=== PATIENT | female | born 1955 | race Caucasian/White ===

== ENCOUNTER → 2017-01-17 | Outpatient (CLI) | payer BC ==
--- NOTE | 2017-01-17 09:40 | BD ---
EXAMINATION TYPE: MG DEXA axial skeleton. DATE OF EXAM: 01/17/2017 COMPARISON: NONE CLINICAL HISTORY: Height: 65.5 IN Weight: 175 LBS FRAX RISK QUESTIONS: Alcohol (3 or more units per day): NO Family History (Parent hip fracture): NO Glucocorticoids (More than 3mos): NO (Ex: prednisone, prednisolone, methylprednisolone, dexamethasone, and hydrocortisone). History of Fracture in Adulthood: YES RT ANKLE AGE 57 Secondary Osteoporosis: 1. Type 1 Diabetes: NO 2. Hyperthyroidism: NO 3. Menopause before 45: YES TOTAL HYST. AGE 39 4. Malnutrition: NO 5. Chronic liver disease: NO Rheumatoid Arthritis: NO Current Tobacco Use: NO RISK FACTORS HISTORY OF: Surgery to Hip(left): YES When: AGE 55 Other Fractures since Age 49: YES RT ANKLE When: AGE 57 Active: YES Postmenopausal woman: AGE 39 Take estrogen and/or progesterone medications: NOT NOW How long: AGE 39 - 53 MEDICATIONS: Thyroid Medications: YES Which medication: Synthroid How Lon YRS Additional Medications: SYNTHROID,DICOLOFENAC, SIMVASTATIN, MYRBETRIQ EXAM MEASUREMENTS: Bone mineral densitometry was performed using the theBench System. Bone mineral density as measured about the Lumbar spine is: ----- L1-L4(G/cm2): 1.159 T Score Values are as follows: ----- L2: -0.2 ----- L3: 0.4 ----- L4: -0.5 ----- L1-L4: -0.2 Bone mineral density BASELINE Bone mineral density about the R hip (g/cm2): 0.974 T Score values are as follows: -----R Neck: -0.5 -----R Total: 0.1 Bone mineral density BASELINE IMPRESSION: No evidence of osteopenia or osteoporosis NOTE: T-SCORE=SD OF THE YOUNG ADULT MEAN.
--- NOTE | 2017-01-18 07:22 | MM ---
Reason for exam: screening (asymptomatic). Last mammogram was performed 1 year ago. History: Patient is postmenopausal and is nulliparous. Family history of breast cancer in mother at age 77, breast cancer in paternal aunt, breast cancer in maternal aunt, and breast cancer in maternal grandmother. Benign right US cyst aspiration ea add of the right breast, April 04, 2007. Benign right US cyst aspiration of the right breast, April 04, 2007. Benign left US cyst aspiration of the left breast, February 16, 2006. Cyst aspiration of the left breast, 2003. Cyst aspiration of the right breast, 1999. Took estrogen for 15 years beginning at age 39. Physical Findings: A clinical breast exam by your physician is recommended on an annual basis and results should be correlated with mammographic findings. MG 3D Screening Mammo W/Cad Bilateral CC and MLO view(s) were taken. Prior study comparison: January 14, 2016, bilateral MG screening mammo w CAD. January 09, 2015, bilateral MG screening mammo w CAD. Previous mammotome biopsy in the right breast x 2. ASSESSMENT: Benign, BI-RAD 2 RECOMMENDATION: Routine screening mammogram of both breasts in 1 year.
== END | disposition home or self-care (01) ==
LOC: RADMAMWWP 08:19
PROVIDERS: ATTEND Family Medicine
DX: Z12.31 Encounter for screening mammogram for malignant neoplasm of breast (principal); Z78.0 Asymptomatic menopausal state
CPT/HCPCS: 77080; 77063; G0202

== ENCOUNTER → 2018-02-14 | Outpatient (CLI) | payer BC ==
--- NOTE | 2018-02-15 10:29 | MM ---
Reason for exam: screening (asymptomatic). Last mammogram was performed 1 year and 1 month ago. History: Patient is postmenopausal and is nulliparous. Family history of breast cancer in mother at age 77, breast cancer in paternal aunt, breast cancer in maternal aunt, and breast cancer in maternal grandmother. Benign right US cyst aspiration ea add of the right breast, April 04, 2007. Benign right US cyst aspiration of the right breast, April 04, 2007. Benign left US cyst aspiration of the left breast, February 16, 2006. Cyst aspiration of the left breast, 2003. Cyst aspiration of the right breast, 1999. Took estrogen for 15 years beginning at age 39. Physical Findings: A clinical breast exam by your physician is recommended on an annual basis and results should be correlated with mammographic findings. MG 3D Screening Mammo W/Cad Bilateral CC and MLO view(s) were taken. Prior study comparison: January 17, 2017, bilateral MG 3d screening mammo w/cad. January 14, 2016, bilateral MG screening mammo w CAD. The breast tissue is heterogeneously dense. This may lower the sensitivity of mammography. Finding: There are typically benign round calcifications in both breasts. Previous mammotome biopsy in the right breast x 2. There is no discrete abnormality. ASSESSMENT: Benign, BI-RAD 2 RECOMMENDATION: Routine screening mammogram of both breasts in 1 year.
== END | disposition home or self-care (01) ==
LOC: RADMAMWWP 09:28
PROVIDERS: ATTEND Family Medicine
DX: Z12.31 Encounter for screening mammogram for malignant neoplasm of breast (principal)
CPT/HCPCS: 77063; 77067

== ENCOUNTER → 2018-03-29 | Outpatient (CLI) | payer BC ==
--- NOTE | 2018-03-29 16:32 | MR ---
EXAMINATION TYPE: MR lumbar spine wo con DATE OF EXAM: 03/29/2018 COMPARISON: 04/14/2011 HISTORY: Low back pain / M48.062 Spinal stenosis CONTRAST: 0 mL intravenous Gadavist. TECHNIQUE: Multiplanar, multisequence images of the lumbar spine were acquired. FINDINGS: L1 L5-S1: No significant disc bulge or disc herniation. No spinal canal stenosis. No foraminal stenosi s. Mild facet hypertrophy is present. There appears be a mild grade 1 spondylolisthesis of L5 anteri or on S1.. L4-L5: Broad based disc bulge is present with mild anterior thecal sac flattening. No AP spinal tamir l stenosis is present. Facet hypertrophy has posterior lateral thecal sac contact. Mild foraminal babar rowing is present. L3-L4: Broad-based disc bulge is present with anterior thecal sac flattening. Facet hypertrophy is pr esent with posterior lateral thecal sac contact. No spinal canal stenosis is present. Mild left and m oderate right foraminal narrowing is present . L2-L3: L disc bulging is anterior thecal sac contact. No spinal canal stenosis is present. Neural for amen are patent. L1-L2: No significant disc bulge or disc herniation. No spinal canal stenosis. No foraminal stenosi s. . T12-L1: No significant disc bulge or disc herniation. No spinal canal stenosis. No foraminal stenos is. IMPRESSION: 1. Mild grade 1 spondylolisthesis of L5 anterior on S1. 2. Broad-based disc bulging L4-5, L3-4. This is progressive from the 2010 comparison. No stenosis is present
== END | disposition home or self-care (01) ==
LOC: RADMRIMAIN 08:42
PROVIDERS: ATTEND Orthopaedic Surgery
DX: M51.26 Other intervertebral disc displacement, lumbar region (principal); M43.17 Spondylolisthesis, lumbosacral region
CPT/HCPCS: 72148

== ENCOUNTER 2019-02-14 14:38 | Day surgery (SDC) | payer BC, MEDICARE ==
[2019-02-12 10:18] VITALS: BMI 25.9
[~2019-02-14 14:38] MED LIST: LACTATED RINGERS 1,000 ML IV SCH; LIDOCAINE 1% 20 ML VIAL (10MG/ML) FOR IV START INTRADERMA PRN; ONDANSETRON 4 MG/2 ML VIAL IVP ONE; ceFAZolin IN SWFI 2 GM/20 ML SYRINGE IVP ONE
[2019-02-14 15:03] VITALS: TEMP 97.5
[2019-02-14] MEDS ORDERED: ePHEDrine SULFATE/0.9% NACL/PF 50 MG/5 ML SYRINGE IV ONE (16:40)
[2019-02-14] MEDS ORDERED: MEPERIDINE 50 MG/ML SYRINGE ONE (16:40)
[2019-02-14] MEDS ORDERED: fentaNYL (PF) 50 MCG/ML 2 ML AMP ONE (16:40)
[2019-02-14] MEDS ORDERED: LIDOCAINE 1% INJ 10MG/ML (20 ML MDV) ONE (16:40)
[2019-02-14] MEDS ORDERED: MIDAZOLAM 2 MG/2 ML VIAL ONE (16:40)
[2019-02-14] MEDS ORDERED: PROPOFOL 10 MG/ML 20 ML VIAL IV ONE (16:40)
[2019-02-14] MEDS ORDERED: LACTATED RINGERS 1,000 ML IV ONE (16:50)
[2019-02-14] MEDS ORDERED: BUPIVACAINE (PF) 0.5% 30 ML VIAL INTRAARTIC ONE (17:40)
--- NOTE | 2019-02-14 17:40 | P.OP ---
Date of Procedure: 02/14/19 Preoperative Diagnosis: Right hallux rigidus Postoperative Diagnosis: Same Procedure(s) Performed: Right first MTP implant arthroplasty Implants: 8 mm Cartiva implant Anesthesia: ARNAUD Surgeon: Michael Bob Development Architect #1: Luigi Conklin Estimated Blood Loss (ml): 5 IV fluids (ml): 750 Pathology: none sent Condition: stable Disposition: PACU Indications for Procedure: The patient is a very pleasant. He is healthy 63-year-old female with long- standing history of problems with her right foot to be able to an arthritic first MTP joint. She has been managed nonsurgically with corticosteroid inje ctions and orthotics both with diminishing relief. She was referred to my office to discuss Cartiva. Since she has failed over 6 months nonsurgical treatment I think it is reasonable to proceed with surgery. We discussed treatment options including isolated cheilectomy, fusion, and implant arthroplasty. The patient had moderate arthritis on her x-rays and a large dorsal osteophyte. After hearing the pros and cons of both fusion and implant arthroplasty the patient requested going forward with implant arthroplasty. She understands the potential limitations of implant arthroplasty using Cartiva. We discussed potential risks and complications including but not limited to risk of anesthesia, superficial infection, deep infection, delayed wound healing, damage to local blood vessels or nerves, implant failure, implant subsidence, intraoperative fracture, postoperative fracture, stiffness, continued or worsened pain, need for revision surgery including implant removal and first MTP fusion, DVT, PE, other medical complications, possibly loss of life or limb. The patient voiced understanding of these potential complications particularly implant failure, continued pain, and need for a fusion. She provided her consent to go forward with surgery. Description of Procedure: Is was identified and proper holding and the correct right foot was marked with my initials. I reviewed the consent form with the patient and all of her questions were answered. The patient was then brought back to the operating room by anesthesia. She was positioned on the OR table where general anesthetic and preoperative antibiotics were given. A tourniquet was placed proximal aspect the right leg. All bony prominences well-padded. The right leg was then prepped and draped in standard sterile fashion. Prior to starting surgery a timeout was performed identifying the correct patient, operative extremity, and procedure. The patient's leg was then elevated, exsanguinated with an Esmarch bandage, and the tourniquet was inflated to 250 mmHg. I outlined a standard dorsal incision the first MTP joint. Skin incision was made with a scalpel. The EHL tendon sheath was incised and the tendon was retracted laterally. The capsule was incised longitudinally in line with the skin incision. The joint was circumferentially exposed to allow full access to the metatarsal head. On inspection there was full-thickness cartilage loss from the first metatarsal head with peripheral osteophytes. The cartilage the base of the proximal phalanx was largely intact and there were peripheral osteophytes on the dorsal aspect of the base the proximal phalanx. Metatarsal head appeared relatively small in a paper twister was used the gauge what size implant would fit her anatomy best. An 8 mm implant seemed to be the best choice given the patient's anatomy. An 8 mm kit was dispensed. The sizer was centered on the metatarsal head and a K wire was driven into the metatarsal. A reamer was used to create a cavity for the implant. The reamer was not fully seated so as to allow the implant to sit 2-3 mm proud. On inspection the reamed cavity appeared to have adequate bony rim. The wound was thoroughly irrigated and an 8 mm implant was dispensed and press-fit into the cavity. The implant appeared to be stable and was sitting really millimeters proud. A rongeur was used to contour the osteophytes around the metatarsal head and proximal phalanx. The wound was thoroughly irrigated. The capsule was closed with a running 3-0 Monocryl. The deep subcu was reapproximated using 3-0 Monocryl. The skin was closed with interrupted 3-0 nylon. I verified that all instrument, sponge, and sharp counts were correct. 10 mL's of half percent Marcaine was injected around the incision. A sterile dressing was applied followed by soft dressing. The patient was awoken from her anesthetic, transferred to a gurney, and brought to recovery having proud of the procedure well Plan: The patient is going to discharge home as an outpatient. She has a tall CAM boot and is going to heel weight-bear. She was instructed to ice and elevate the leg to help with healing of her surgical wound. She'll follow-up in the office in 2 weeks.
[2019-02-14] MEDS: HYDROmorphone 0.5 MG/0.5 ML SYRINGE IVP PRN ×4 (18:05→18:27)
[2019-02-14] MEDS ORDERED: KETOROLAC 30 MG/ML 1 ML VIAL IVP ONE (18:06)
[2019-02-14 18:39] VITALS: RESP 16
[2019-02-14 19:05] VITALS: BP 122/73; PULSE 71
== END 2019-02-14 19:20 | disposition home or self-care (01) ==
LOC: OR 14:38
PROVIDERS: ATTEND Orthopaedic Surgery
DX: M20.21 Hallux rigidus, right foot (principal); M19.071 Primary osteoarthritis, right ankle and foot; E78.5 Hyperlipidemia, unspecified; E03.9 Hypothyroidism, unspecified; Z88.0 Allergy status to penicillin; Z88.8 Allergy status to other drugs, medicaments and biological substances; Z87.891 Personal history of nicotine dependence; Z79.899 Other long term (current) drug therapy; Z79.890 Hormone replacement therapy; Z96.642 Presence of left artificial hip joint; H91.90 Unspecified hearing loss, unspecified ear; Z97.3 Presence of spectacles and contact lenses; Z90.710 Acquired absence of both cervix and uterus
CPT/HCPCS: 28291; C1713; J2250; J2175; J2405; J2001; J3010; J1885; J2704; J1170; J0690

== ENCOUNTER → 2019-03-02 | Outpatient (CLI) | payer MEDICARE ==
--- NOTE | 2019-03-06 16:51 | MM ---
Reason for exam: screening (asymptomatic). Last mammogram was performed 1 year and 1 month ago. History: Patient is postmenopausal and is nulliparous. Family history of breast cancer in mother at age 77, breast cancer in paternal aunt, breast cancer in maternal aunt, and breast cancer in maternal grandmother. Benign right US cyst aspiration ea add of the right breast, April 04, 2007. Benign right US cyst aspiration of the right breast, April 04, 2007. Benign left US cyst aspiration of the left breast, February 16, 2006. Cyst aspiration of the left breast, 2003. Cyst aspiration of the right breast, 1999. Took estrogen for 15 years beginning at age 39. Taking other hormone. MG 3D Screening Mammo W/Cad Bilateral CC and MLO view(s) were taken. Prior study comparison: February 14, 2018, bilateral MG 3d screening mammo w/cad. January 17, 2017, bilateral MG 3d screening mammo w/cad. The breast tissue is heterogeneously dense. This may lower the sensitivity of mammography. Two previous mammotome biopsies in the right breast. No significant new finding when compared with prior studies. ASSESSMENT: Negative, BI-RAD 1 RECOMMENDATION: Routine screening mammogram of both breasts in 1 year.
== END | disposition home or self-care (01) ==
LOC: RADMAMWWP 09:40
PROVIDERS: ATTEND Family Medicine
DX: Z12.31 Encounter for screening mammogram for malignant neoplasm of breast (principal); Z80.3 Family history of malignant neoplasm of breast
CPT/HCPCS: 77063; 77067